=== PATIENT | male | born 1985 | race Caucasian/White ===

== ENCOUNTER 2017-01-14 08:48 | Emergency (ER) | payer OTHER ==
[2017-01-14 08:54] VITALS: O2SAT 97
--- NOTE | 2017-01-14 09:01 | CPEKG ---
Heart Rate: 67 RR Interval: 896 P-R Interval: 168 QRSD Interval: 96 QT Interval: 380 QTC Interval: 401 P [place]: 69 QRS [place]: 60 T Wave [place]: 50 EKG Severity - BORDERLINE ECG - EKG Impression: SINUS RHYTHM EKG Impression: PROBABLE LEFT ATRIAL ABNORMALITY Electronically Signed By: Roselyn Perkins 14-Jan-2017 15:18:44
--- NOTE | 2017-01-14 09:27 | EDPHY ---
H & P Time Seen by Provider: 01/14/17 09:04 HPI/ROS: CHIEF COMPLAINT: Chest pain HISTORY OF PRESENT ILLNESS: The patient is a 31-year-old male who presents to the emergency department with ongoing chest pain since Wednesday. He describes it as " superficial chest pressure" across the front of his chest. This occasionally " goes deep." he denies pleurisy. It is not positional. He denies radiation into his neck or arm. He denies diaphoresis, nausea or vomiting. No shortness of breath. No leg pain or swelling. No recent travel. REVIEW OF SYSTEMS: My complete review of systems is negative except as mentioned in the HPI. Past Medical/Surgical History: Denies Past surgical history: Denies Social history: The patient denies smoking or marijuana use. Smoking Status: Never smoked Physical Exam: Vitals noted GENERAL: Well-appearing, in no acute distress, alert. HEENT: Eyes normal to inspection, normal pharynx, no signs of dehydration. NECK: No thyromegaly, no lymphadenopathy, supple. RESPIRATORY: Clear to auscultation bilaterally, no rales, rhonchi or wheezing. CVS: Regular rate and rhythm, no rubs, murmurs, or gallops. ABDOMEN: Soft, nontender, nondistended, no organomegaly. BACK: Normal to inspection, no CVA tenderness. SKIN: Normal color, no rash, warm, dry. No pallor. EXTREMITIES: No pedal edema, no calf tenderness, no Homans sign or cords, no joint swelling. NEURO/PSYCH: [Alert and oriented, normal mood and affect. Constitutional: Initial Vital Signs Temperature (C) 36.8 C 01/14/17 08:49 Heart Rate 76 01/14/17 08:49 Respiratory Rate 20 01/14/17 08:49 Blood Pressure 128/79 H 01/14/17 08:49 O2 Sat (%) 97 01/14/17 08:49 O2 Delivery Mode Room Air Allergies/Adverse Reactions: No Known Allergies Allergy (Unverified 01/14/17 08:54) Home Medications: Medication Instructions Recorded NK [No Known Home Meds] 01/14/17 Medical Decision Making - Diagnostics Imaging: Chest x-ray: Please refer the dictated report. No acute disease. The patient does have a right lower lobe nodule. I discussed this with the radiologist. I discussed this with the patient and told him need close follow up with his primary care physician. He was recommended from the radiologist that he have a repeat imaging in 6 months. ED Course/Re-evaluation: In the emergency department I discussed possible etiologies with the patient. I discussed the plan and answered his questions. IV was placed. Laboratory studies, EKG and chest x-ray were ordered. The patient was given aspirin orally. EKG shows normal sinus rhythm, [normal rate, normal axis, normal intervals]. LVH. There are [no ST or T-wave abnormalities]. EKG is normal as interpreted by me. I reviewed the patient's laboratory studies. His D-dimer and troponin were negative. CBC was normal. The patient was noted to have an elevated lipase of greater than 800. Ultrasound right upper quadrant: Please refer the dictated report by Dr. Handley. No acute disease noted. Discussed the result with the patient. On recheck the patient had no significant epigastric tenderness to palpation. He denies drinking heavily. He drinks about 3 alcoholic beverages a week. He has no history of gallstones. A right upper quadrant ultrasound was ordered. The patient consented. I discussed the result with the patient. On re-evaluation the patient had no abdominal pain. He was soft, nontender nondistended. Patient was given follow- up with Gastroenterology. He will return with worsening symptoms. He is given warnings prior to leaving. Differential Diagnosis: My differential includes but is not limited to ACS, acute MA, pulmonary embolus, dissection, aneurysm, myocarditis, pericarditis, GERD, hiatal hernia, zoster - Data Points Laboratory Results: Laboratory Results 01/14/17 09:00 01/14/17 09:00 01/14/17 01/14/17 01/14/17 09:00 09:00 09:00 WBC 3.90 10^3/uL 10^3/uL (3.80-9.50) RBC 5.77 10^6/uL 10^6/uL (4.40-6.38) Hgb 16.7 g/dL g/dL (13.7-17.5) Hct 48.1 % % (40.0-51.0) MCV 83.4 fL fL (81.5-99.8) MCH 28.9 pg pg (27.9-34.1) MCHC 34.7 g/dL g/dL (32.4-36.7) RDW 12.3 % % (11.5-15.2) Plt Count 207 10^3/uL 10^3/uL (150-400) MPV 10.2 fL fL (8.7-11.7) Neut % (Auto) 61.5 % % (39.3-74.2) Lymph % (Auto) 27.7 % % (15.0-45.0) Mason % (Auto) 7.9 % % (4.5-13.0) Eos % (Auto) 2.1 % % (0.6-7.6) Baso % (Auto) 0.5 % % (0.3-1.7) Nucleat RBC Rel Count 0.0 % % (0.0-0.2) Absolute Neuts (auto) 2.40 10^3/uL 10^3/uL (1.70-6.50) Absolute Lymphs (auto) 1.08 10^3/uL 10^3/uL (1.00-3.00) Absolute Monos (auto) 0.31 10^3/uL 10^3/uL (0.30-0.80) Absolute Eos (auto) 0.08 10^3/uL 10^3/uL (0.03-0.40) Absolute Basos (auto) 0.02 10^3/uL 10^3/uL (0.02-0.10) Absolute Nucleated RBC 0.00 10^3/uL 10^3/uL (0-0.01) Immature Gran % 0.3 % % (0.0-1.1) Immature Gran # 0.01 10^3/uL 10^3/uL (0.00-0.10) D-Dimer 0.28 ug/mLFEU ug/mLFEU (0.00-0.50) Sodium 144 mEq/L mEq/L (134-144) Potassium 4.2 mEq/L mEq/L (3.5-5.2) Chloride 105 mEq/L mEq/L (97-110) Carbon Dioxide 25 mEq/l mEq/l (22-31) Anion Gap 14 mEq/L mEq/L (8-16) BUN 11 mg/dL mg/dL (7-23) Creatinine 0.7 mg/dL mg/dL (0.7-1.3) Estimated GFR > 60 Glucose 86 mg/dL mg/dL (70-100) Calcium 10.0 mg/dL mg/dL (8.5-10.4) Total Bilirubin 1.2 mg/dL mg/dL (0.1-1.4) Conjugated Bilirubin 0.3 mg/dL mg/dL (0.0-0.5) Unconjugated Bilirubin 0.9 mg/dL mg/dL (0.0-1.1) AST 30 IU/L IU/L (17-59) ALT 38 IU/L IU/L (21-72) Alkaline Phosphatase 74 IU/L IU/L (38-126) Troponin I < 0.012 ng/mL ng/mL (0-0.034) Total Protein 8.4 g/dL H g/dL (6.3-8.2) Albumin 5.0 g/dL g/dL (3.5-5.0) Lipase 887.0 IU/L H IU/L (23-300) Medications Given: Discontinued Medications Aspirin (Aspirin) 324 mg PO EDNOW ONE Stop: 01/14/17 09:32 Last Admin: 01/14/17 09:50 Dose: 324 mg Departure - Departure Disposition: Home, Routine, Self-Care Clinical Impression: Chest pain Qualifiers: Chest pain type: unspecified Qualified Code(s): R07.9 - Chest pain, unspecified Pancreatitis Qualifiers: Chronicity: acute Pancreatitis type: other Acute pancreatitis complication: unspecified Qualified Code(s): K85.80 - Other acute pancreatitis without necrosis or infection Condition: Good Instructions: Pancreatitis (ED), Chest Pain (ED) Additional Instructions: You have a right lower lobe nodule on her chest x-ray. You need to have a repeat chest x-ray in 6 months for comparison. Urine elevated lipase which can indicate pancreatitis. Return to the emergency department with increasing pain , fever, vomiting or any other concerns. You been given follow-up information with flooring professional, mine safety director and her primary care physician. Referrals: Shantal Linares MD [Primary Care Provider] - 3-4 days, if not improved [facility],. [Edm Groups for Call Sched] - As per Instructions [facility] [Provider Group] - As per Instructions
[2017-01-14] MEDS ORDERED: ASPIRIN 81 MG CHEWABLE TAB PO ONE (09:31)
[2017-01-14 09:41] LABS: % IMMATURE GRANULYOCYTES 0.3 % (0.0-1.1); ABSOLUTE IMMATURE GRANULOCYTES 0.01 10^3/uL (0.00-0.10); ADD DIFF? NO; ADD MORPH? NO; ADD SCAN? NO; ATYPICAL LYMPHOCYTE FLAG 10 (0-99); FRAGMENT RBC FLAG 0 (0-99); HEMATOCRIT 48.1 % (40.0-51.0); HEMOGLOBIN 16.7 g/dL (13.7-17.5); LEFT SHIFT FLG 0 (0-99); LIPEMIA HEMOLYSIS FLAG 90 (0-99); MEAN CELL HEMOGLOBIN 28.9 pg (27.9-34.1); MEAN CELL HEMOGLOBIN CONCENTR. 34.7 g/dL (32.4-36.7); MEAN CELL VOLUME 83.4 fL (81.5-99.8); MEAN PLATELET VOLUME 10.2 fL (8.7-11.7); PLATELET CLUMPS FLAG 0 (0-99); PLATELET COUNT 207 10^3/uL (150-400); RED BLOOD CELL COUNT 5.77 10^6/uL (4.40-6.38); RED CELL DISTRIBUTION WIDTH 12.3 % (11.5-15.2)
[2017-01-14 09:57] LABS: ALANINE AMINOTRANSFERASE 38 IU/L (21-72); ALKALINE PHOSPHATASE 74 IU/L (38-126); ANION GAP 14 mEq/L (8-16); ASPARTATE AMINOTRANSFERASE 30 IU/L (17-59); BILIRUBIN,TOTAL 1.2 mg/dL (0.1-1.4); BILIRUBIN-CONJUGATED 0.3 mg/dL (0.0-0.5); BILIRUBIN-UNCONJUGATED 0.9 mg/dL (0.0-1.1); CARBON DIOXIDE 25 mEq/l (22-31); CHLORIDE 105 mEq/L (97-110); CREATININE 0.7 mg/dL (0.7-1.3); GLOMERULAR FILTRATION RATE > 60; GLUCOSE 86 mg/dL (70-100); POTASSIUM 4.2 mEq/L (3.5-5.2); SODIUM 144 mEq/L (134-144); TOTAL PROTEIN 8.4 g/dL (6.3-8.2)
[2017-01-14 10:08] LABS: TROPONIN I < 0.012 ng/mL (0-0.034)
[2017-01-14 12:14] VITALS: BP 129/77; PULSE 70; RESP 18; TEMP 98.6
== END 2017-01-14 12:13 | disposition home or self-care (01) ==
DX: R07.9 Chest pain, unspecified (principal); K85.80 Other acute pancreatitis without necrosis or infection